=== PATIENT | male | born 1955 | race Caucasian/White ===

== ENCOUNTER 2024-10-15 17:00 | Inpatient (IN) | payer MEDICARE, SELFPAY ==
[2024-10-15] VITALS (13 sets, daily range): BP systolic 127–179; BP diastolic 77–100; PULSE 58–67; RESP 10–20; TEMP 36.4–36.9; O2SAT 96–100; BMI 30.2
--- NOTE | 2024-10-15 17:01 | ECG_ITS ---
Test Date: 2024-10-15 17:05:21 Measurements Intervals [place] Rate: 62 P: 25 MD: 193 QRS: -64 QRSD: 118 T: 93 QT: 421 QTc: 430 Interpretive Statements SINUS RHYTHM LEFT ANTERIOR FASCICULAR BLOCK INFERIOR ST ELEVATION MYOCARDIAL INJURY- ACUTE RECIPROCAL ST DEPRESSION IN HIGH LATERAL LEADS ABNORMAL ECG No previous ECG available for comparison Electronically Signed On 10-15-2024 19:29:48 CDT by Usman Gomez D.O.
--- NOTE | 2024-10-15 17:13 | PC.NURSE ---
1713 stemi o/h [address] Fletcher talked to Dr Wheeler 1715 [facility] Notified ETA 25min
--- NOTE | 2024-10-15 17:18 | ED.GENADULT ---
HPI - General Adult General Chief complaint: Chest Pain Stated complaint: chest pain Time Seen by Provider: 10/15/24 17:14 History of Present Illness HPI narrative: This is a 69-year-old male presenting ED with chief complaint of chest pain. Patient says at 2:30 p.m. this afternoon he developed a heaviness in the center of his chest that radiated to both arms. It was associated with a feeling of warmth. He denies any history of hypertension diabetes or tobacco use but has not seen a doctor in many years. Patient is still currently having chest pain. No recent illness, fevers shortness of breath productive cough or abdominal pain. No weakness to any extremity. Related Data Allergies Allergy/AdvReac Type Severity Reaction Status Date / Time No Known Allergies Allergy Unverified 02/24/14 15:20 Exam Narrative: APPEARANCE: No apparent distress. Head: atraumatic. EYES: EOMI, NOSE: Atraumatic NECK: Trachea midline RESPIRATORY: No increased rate of breathing CTAB CARDIOVASCULAR: RRR, + 2 pulses in extremities ABDOMINAL: Non-distended, soft nontender MUSCULOSKELETAl: No obvious deformities NEURO: Alert. Moving 4/4 extremities SKIN:: Warm, dry. Normal color PSYCHIATRIC: Normal affect Course Vital Signs Vital signs: Vital Signs Temperature 97.6 F 10/15/24 17:10 Pulse Rate 60 10/15/24 17:10 Respiratory Rate 16 10/15/24 17:10 Blood Pressure 159/86 H 10/15/24 17:10 Pulse Oximetry 96 10/15/24 17:10 Oxygen Delivery Room Air 10/15/24 17:10 Temperature 97.6 F 10/15/24 17:10 Pulse Rate 60 10/15/24 17:10 Respiratory Rate 16 10/15/24 17:10 Blood Pressure 159/86 H 10/15/24 17:10 Pulse Oximetry 96 10/15/24 17:10 Oxygen Delivery Room Air 10/15/24 17:10 Medical Decision Making [facility] Narrative Medical decision making narrative: -Course: This is a 69-year-old male presenting to the ED with cardiac chest pain. EKG shows and LVH pattern and possible ST elevations in 3 [address]F [address] clear [address] depressions in V2. Interventional Cardiology was contacted and STEMI was activated. Patient going to the operations label clerk. Patient given aspirin and heparin bolus. Vital Signs Vital Signs: Vital Signs Temperature 97.6 F 10/15/24 17:10 Pulse Rate 60 10/15/24 17:10 Respiratory Rate 16 10/15/24 17:10 Blood Pressure 159/86 H 10/15/24 17:10 Pulse Oximetry 96 10/15/24 17:10 Oxygen Delivery Room Air 10/15/24 17:10 Temperature 97.6 F 10/15/24 17:10 Pulse Rate 60 10/15/24 17:10 Respiratory Rate 16 10/15/24 17:10 Blood Pressure 159/86 H 10/15/24 17:10 Pulse Oximetry 96 10/15/24 17:10 Oxygen Delivery Room Air 10/15/24 17:10 Discharge Plan Discharge Patient Language: Slovak
[2024-10-15] MEDS: ASPIRIN 81 MG CHEWABLE TABLET 324 MG PO (17:27)
[2024-10-15 17:29] LABS: Hematocrit 46.7 % (42.0-52.0); Hemoglobin 15.8 g/dL (14.0-18.0); Immature Granulocyte Percent A 0.2 % (0-0.5); Immature Platelet Fraction Pct 2.7 % (0.9-11.2); Lymphocytes Absolute Auto 0.97 K/mm3 (0.9-3.2); Mean Corpuscular HGB Conc 33.8 g/dl (32-36); Mean Corpuscular Hemoglobin 33.1 pg (26-34); Mean Corpuscular Volume 97.9 fl (80-100); Nucleated Red Blood Cells Absolute Auto 0.000 K/mm3 (0.0-0.012); Nucleated Red Blood Cells Perc 0.0 % (0.0-0.2); Platelet Count Result 235 k/mm3 (150-375); Red Blood Count 4.77 M/mm3 (4.6-6.20); White Blood Count 10.4 K/mm3 (4.5-10.0)
[2024-10-15 17:44] LABS: Alanine Aminotransferase 33 U/L (6-50); Albumin Level 4.7 g/dL (3.5-5.1); Alkaline Phosphatase 128 U/L (38-126); Anion Gap 11 mmol/L (4-12); Aspartate Amino Transferase 38 U/L (17-59); Bilirubin,Total 0.7 mg/dL (0.2-1.3); Blood Urea Nitrogen 15 mg/dL (9-20); Calcium 8.9 mg/dL (8.4-10.2); Carbon Dioxide 22 mmol/L (22-30); Chloride 104 mmol/L (98-107); Estimated CRCL calculation 71 ml/min; Estimated Glomerular Filt Rate > 60; Glucose 111 mg/dL (65-110); Lipase 80 U/L (23-300); Potassium 3.9 mmol/L (3.4-5.0); Sodium 137 mmol/L (137-145); Total Protein 8.4 g/dL (6.3-8.2)
[2024-10-15 17:48] LABS: INR 0.9; Prothrombin Time 12.4 Seconds (11.1-14.7)
[2024-10-15 17:49] LABS: Partial Thromboplastin Time 25.2 Seconds (22.3-36.8)
[2024-10-15 17:51] LABS: Troponin I 0.017 ng/mL (0.000-0.034)
[2024-10-15 19:00] LABS: MRSA (PCR) NOT DETECTED (NOT DETECTE)
--- NOTE | 2024-10-15 19:02 | P.SEDATION_ITS ---
Moderate Sedation Note-Pt Data Patient Data Diagnosis: Inferior STEMI Present Complaint: Chest pain Procedure to be performed/Plan: Coronary angiogram possible stent Allergies Allergy/AdvReac Type Severity Reaction Status Date / Time No Known Allergies Allergy Unverified 02/24/14 15:20 Sedation/Anesthesia: No previous sedation/anesthesia problems (including family history). Mod Sed Physical Exam Physical Exam Pre Procedural Exam: Normal: Appearance, Eyes, Ears, Nose, Neck, Throat, Airway, Lungs, Heart Size, Heart Rate, Heart Rhythm, Neuro Exam, Abdomen, Liver, Kidneys, Spleen, Breasts, Genitalia, Extremities and Skin Hours since solid foods: 8 Hours since liquid intake: 8 Mallampati Classification: class 1 Internal Medicine - PN: Obj Da Vital Signs Vital Signs: Vital Signs - 24 hr 10/15/24 17:10 10/15/24 17:16 10/15/24 17:34 Temperature 36.4 C 36.6 C 36.8 C Pulse Rate 60 67 62 Respiratory Rate 16 18 16 Blood Pressure 159/86 H 175/100 H 174/84 H Pulse Oximetry 96 98 96 Oxygen Delivery Room Air Room Air 10/15/24 17:52 Temperature Pulse Rate 66 Respiratory Rate 20 Blood Pressure 174/84 H Pulse Oximetry 100 Oxygen Delivery Labs 10/15/24 17:20 10/15/24 17:20 Labs: Laboratory Results - last 24 hr 10/15/24 10/15/24 17:20 17:42 WBC 10.4 H RBC 4.77 Hgb 15.8 Hct 46.7 MCV 97.9 MCH 33.1 MCHC 33.8 RDW 12.3 Plt Count 235 MPV 9.7 Immature Gran % (Auto) 0.2 Neut % (Auto) 83.6 H Lymph % (Auto) 9.4 L [place] % (Auto) 5.6 Eos % (Auto) 0.9 Baso % (Auto) 0.3 Lymph # (Auto) 0.97 [place] # (Auto) 0.6 Eos # (Auto) 0.1 Baso # (Auto) 0.0 Abs Immat Gran (auto) 0.02 Absolute Neuts (auto) 8.7 H Absolute Nucleated RBC 0.000 Nucleated RBC % 0.0 % Immature Plt Fraction 2.7 PT 12.4 INR 0.9 APTT 25.2 Sodium 137 Potassium 3.9 Chloride 104 Carbon Dioxide 22 Anion Gap 11 BUN 15 Creatinine 0.79 Estim Creat Clear Calc 71 Estimated GFR > 60 Glucose 111 H Calcium 8.9 Total Bilirubin 0.7 AST 38 ALT 33 Alkaline Phosphatase 128 H Troponin I 0.017 Total Protein 8.4 H Albumin 4.7 Lipase 80 Nasal MRSA (PCR) Not detected ASA Classification/Sedation ASA Classification/Sedation ASA Class: I Emergent: No Risks: Risks, benefits and alternatives explained and patient/family accepted plan for sedation. Patient re-evaluated immediately prior to sedation.
--- NOTE | 2024-10-15 19:02 | WPDHPUPDATE1 ---
History and Physical Update Update Date/Time: 10/15/24 19:02 History and Physical has been reviewed, including an updated exam of the patient. There are NO changes in the patient's condition. Risks, benefits, and alternatives have been discussed and questions answered. Patient agrees to proceed with procedure.
--- NOTE | 2024-10-15 19:03 | P.PCNCC_ITS ---
Cardiac Cath Procedure Note Date of procedure:: 10/15/24 Performing physician:: Rehana Wheeler MD Date of service October 15, 2024 Indication:: Inferior STEMI Brief clinical history:: This 69-year-old patient with no significant past history and who has not seen any doctor for the last 40 years and who drinks 6 pack beer and lives by himself and has a strong family history of CAD with 2 brothers had stents presents to the hospital with chest pain that started around 2:30 p.m.. It is intermittent and central in location. It started to become severe and decided to come to the ER. EKG showed inferior ST elevations with reciprocal ST changes. Also ST elevation in lead V3. He was given aspirin and 4000 heparin emergency room. Procedure Procedure performed:: 1-Moderate sedation that started at 6:04 p.m. and ended at 6:55 p.m. total duration 51 minutes using 2mg of Versed and mcg fentanyl. The registered nurse was deya haynes. 2-Selective left and right coronary angiogram. 3-Left heart catheterization with measurement of LVEDP and measurement of gradient across aortic valve. 4-intravascular ultrasound of the RCA. -5-deployment with drug-eluting stent orsiro 3 x 26 covering proximal and mid RCA. The proximal portion stent was expanded with noncompliant balloon using 3.5 mm balloon. 6-Right common femoral arterial angiogram. 7-Deployment of 6 [place] Angio-Seal. Sedation/Medication given:: Moderate sedation. Access site:: Right common femoral artery. Estimated blood loss:: 10cc Procedure note:: After informed consent patient was brought in to crown and bridge dental lab technician with the was draped and prepped in usual manner. Moderate sedation was given and the right groin was infiltrated using 1% lidocaine. six [place] sheath was obtained using micropuncture needle and the modified Seldinger technique. Selective left coronary angiogram was done using JL4 catheter with the tip of the catheter placed in the left main coronary artery. Selective right coronary angiogram was done using JR4 catheter with the tip of the catheter placed to the right coronary artery. After that 6 [place] guide catheter the JR4 was engaged in RCA then we attempted to wire RCA using luge without success and then we used Business Manager 150 wire. Then balloon angioplasty was done using 2.5 x 15 with inflation done corresponding to size 2.75. Subsequently intravascular ultrasound was done. Then deployed drug- eluting stent orsiro 3 x 26 covering proximal and midportion of RCA and a nominal pressure. Post dilated the proximal portion of the stent using 3.5 mm balloon under normal pressure for 20 seconds. After that 5 [place] pigtail catheter was advanced across the aortic valve into the left ventricle with measurement of LVEDP and measurement of gradient across aortic valve. LV angiogram was done. Right common femoral arterial angiogram was done. Findings:: 1- left coronary artery is a large artery that divides into large LAD, large circumflex artery. Left main is free of disease 2- left anterior descending artery is a large artery that runs and wraps around the apex. In the proximal portion there is a high-grade stenosis 90%. Prior to the lesion there is a medium-size diagonal branch looks unremarkable. 3- leftcircumflex artery is a large artery and has minimal irregularities. 4- right coronary artery is totally occluded proximally. With RITESH flow 0 before intervention and 3 after intervention. 5-intravascular ultrasound of the RCA shows that the RCA distal to the lesion measures 3 mm in the proximal portion of the RCA measures about 3.7-4 mm. 5- LVEDP was 12 mm Hg and no gradient across aortic valve. 6- opening arterial pressure was 149/86 and closing pressure was 110/74 7- right femoral artery angiogram shows no significant disease in the right common femoral artery. Assessment and Plan Assessment and plan (1) STEMI (ST elevation myocardial infarction): Code(s): I21.3 - ST elevation (STEMI) myocardial infarction of unspecified site Status: Acute Plan -continue aspirin and Brilinta -staged intervention to the LAD within 1-2 weeks. -high-intensity statin. -echo. -alcohol withdrawal precautions.
--- NOTE | 2024-10-15 19:10 | PM.IMHP ---
H&P: HPI History of Present Illness Date/Time: Date of service 10/15/24 19:10 Chief Complaint: Chest pain Narrative: This 69-year-old patient with no significant past history and who has not seen any doctor for the last 40 years and who drinks 6 pack beer and lives by himself and has a strong family history of CAD with 2 brothers had stents presents to the hospital with chest pain that started around 2:30 p.m.. It is intermittent and central in location. It started to become severe and decided to come to the ER. EKG showed inferior ST elevations with reciprocal ST changes. Also ST elevation in lead V3. He was given aspirin and 4000 heparin emergency room. Review of Systems Review of Systems: All systems reviewed & are unremarkable except as noted in HPI and below Constitutional: Constitutional: Denies chills, Denies fatigue, Denies fever(s), Denies headache(s) and Denies snoring Eyes: Eyes: Denies eye discharge and Denies loss of vision ENT: Denies dizziness, Denies headache(s), Denies nasal discharge and Denies sore throat Cardiovascular: Cardiovascular: Reports as per HPI, Reports chest pain, Denies syncope, Denies rapid heart rate, Denies leg edema, Reports dyspnea, Reports dyspnea on exertion, Denies orthopnea and Denies paroxysmal nocturnal dyspnea Respiratory: Respiratory: Denies chest congestion, Denies cough, Reports dyspnea, Reports dyspnea on exertion, Denies snoring and Denies wheezing Gastrointestinal: Gastrointestinal: Denies abdominal pain, Denies diarrhea, Denies nausea and Denies vomiting Genitourinary: Genitourinary: Denies hematuria, Denies dysuria, Denies flank pain and Denies urinary frequency Musculoskeletal: Musculoskeletal: Denies myalgias, Denies arthralgias and Denies joint swelling Neurologic: Denies Abnormal speech present, Denies dizziness, Denies syncope, Denies headache(s), Denies focal weakness and Denies loss of vision Psychiatric: Psychiatric: Denies anxiety and Denies depression Endocrine: Endocrine: Denies cold intolerance, Denies fatigue and Denies heat intolerance Hematologic/Lymphatic: Hematologic/Lymphatic: Denies easy bleeding and Denies easy bruising Allergic/Immunologic: Allergic/Immunologic: Denies urticaria and Denies wheezing Meds Home Medications and Allergies Allergies Allergy/AdvReac Type Severity Reaction Status Date / Time No Known Allergies Allergy Unverified 02/24/14 15:20 Vital Signs Vital Signs - 24 hr 10/15/24 17:10 10/15/24 17:16 10/15/24 17:34 Temperature 36.4 C 36.6 C 36.8 C Pulse Rate 60 67 62 Respiratory Rate 16 18 16 Blood Pressure 159/86 H 175/100 H 174/84 H Pulse Oximetry 96 98 96 Oxygen Delivery Room Air Room Air 10/15/24 17:52 Temperature Pulse Rate 66 Respiratory Rate 20 Blood Pressure 174/84 H Pulse Oximetry 100 Oxygen Delivery Exam Const: General: cooperative, healthy appearing, comfortable, no acute distress, well developed and well nourished Nutritional Appearance: well nourished Orientation/consciousness: patient oriented x3 HENMT: Head: normal to inspection, normocephalic and atraumatic Ears: hearing grossly normal bilaterally and external ears normal Face/Nose/Sinus: Normal external nose present, Normal nares present, normal facial exam and No erythema Face and sinus: normal facial exam and no erythema Mouth: Yes moist mucous membranes and No lip abnormal Throat: uvula midline Eyes: General: appearance normal, both eyes and all related structures Eyelids: eyelids normal Sclera: sclerae normal Neck: Neck: normal visual inspection and full ROM Thyroid: thyroid normal Carotids: no bruits Lymphatic: lymphedema not noted Chest: Chest palpation & inspection: normal inspection of the chest and normal palpation of entire chest wall Resp: Effort & Inspection: normal respiratory effort and not labored Auscultation: clear to auscultation bilaterally, no crackles, no rales and no wheezes Cardio: Jugular venous distension: no JVD Rate: regular rate Rhythm: regular rhythm Heart sounds: S1 normal heart sound present, S2 normal heart sound present, no click, no gallops, no murmurs and no rubs Bruits: no carotid bruits GI: Inspection: normal to inspection and non-distended GI Palp: No abdominal tenderness Auscultation: normal bowel sounds Rectal Exam: deferred : General: No CVA tenderness and Yes no CVA tenderness Back/Spine/Pelvis: Back: no CVA tenderness, No CVA tenderness and No erythema Cervical Spine: cervical ROM normal Skin: General skin exam: normal color, no erythema and no pallor Lesions: no lesions Rashes: no rashes Neuro: General: patient oriented x3 and moves all extremities Cranial nerves: Yes facial symmetry Speech: normal speech Motor exam (neuro): 5/5 motor strength present throughout Extrem: General: normal to inspection and full ROM Psych: Appearance: grossly normal, well kempt and disheveled Affect: normal affect H&P: Results Labs Labs: Short CBC 10/15/24 Range/Units 17:20 WBC 10.4 H (4.5-10.0) K/mm3 Hgb 15.8 (14.0-18.0) g/dL Hct 46.7 (42.0-52.0) % Plt Count 235 (150-375) k/mm3 BMP 10/15/24 17:20 Sodium 137 Potassium 3.9 Chloride 104 Carbon Dioxide 22 BUN 15 Creatinine 0.79 Glucose 111 H Calcium 8.9 Cardiac Enzymes 10/15/24 Range/Units 17:20 Troponin I 0.017 (0.000-0.034) ng/mL Liver Function 10/15/24 Range/Units 17:20 Total Bilirubin 0.7 (0.2-1.3) mg/dL AST 38 (17-59) U/L ALT 33 (6-50) U/L Alkaline Phosphatase 128 H (38-126) U/L Albumin 4.7 (3.5-5.1) g/dL Assessment and Plan Assessment and plan (1) STEMI (ST elevation myocardial infarction): Code(s): I21.3 - ST elevation (STEMI) myocardial infarction of unspecified site Status: Acute Assessment and Plan: Inferior STEMI Plan Risks And benefits of cardiac catheterization discussed with the patient agrees to proceed. We will proceed in an emergency fashion
--- NOTE | 2024-10-15 19:30 | ECG_ITS ---
Test Date: 2024-10-15 20:21:46 Measurements Intervals [place] Rate: 60 P: 50 NC: 198 QRS: -65 QRSD: 118 T: -9 QT: 441 QTc: 441 Interpretive Statements SINUS RHYTHM LEFT ANTERIOR FASCICULAR BLOCK VOLTAGE CRITERIA FOR LVH SEPTAL ST ELEVATION- CONSIDER ACUTE INJURY BASELINE ARTIFACT- I, II, III, AVR, AVL, AVF, V1-V6 ABNORMAL ECG Compared to ECG 10/15/2024 17:05:[address] ELEVATION NOW PRESENT INFERIOR STEMI NO LONGER PRESENT Electronically Signed On 10-16-2024 06:31:34 CDT by Usman Gomez D.O.
[2024-10-15] MEDS: SODIUM CHLORIDE 0.9% IV 1,000 ML 100 ML IV CONT (19:46)
[2024-10-15 20:46] LABS: Cholesterol 208 mg/dL (0-200); HDL Direct 63 mg/dL; Triglycerides 77 mg/dL (<150)
[2024-10-15 21:26] LABS: Troponin I 6.210 ng/mL (0.000-0.034)
[2024-10-15 21:33] LABS: Magnesium 2.1 mg/dL (1.6-2.3)
[2024-10-16] VITALS (18 sets, daily range): BP systolic 120–170; BP diastolic 61–94; PULSE 55–137; RESP 13–20; TEMP 36.6–37.1; O2SAT 96–100
[2024-10-16 00:18] LABS: Troponin I 23.900 ng/mL (0.000-0.034)
[2024-10-16 04:49] LABS: Hematocrit 42.4 % (42.0-52.0); Hemoglobin 14.6 g/dL (14.0-18.0); Immature Granulocyte Percent A 0.3 % (0-0.5); Lymphocytes Absolute Auto 1.20 K/mm3 (0.9-3.2); Mean Corpuscular HGB Conc 34.4 g/dl (32-36); Mean Corpuscular Hemoglobin 33.9 pg (26-34); Mean Corpuscular Volume 98.4 fl (80-100); Nucleated Red Blood Cells Absolute Auto 0.000 K/mm3 (0.0-0.012); Nucleated Red Blood Cells Perc 0.0 % (0.0-0.2); Platelet Count Result 215 k/mm3 (150-375); Red Blood Count 4.31 M/mm3 (4.6-6.20); White Blood Count 9.1 K/mm3 (4.5-10.0)
[2024-10-16 04:53] LABS: Hemoglobin A1C 5.4 % (<5.7)
[2024-10-16 05:18] LABS: Anion Gap 6 mmol/L (4-12); Blood Urea Nitrogen 11 mg/dL (9-20); Calcium 8.0 mg/dL (8.4-10.2); Carbon Dioxide 22 mmol/L (22-30); Chloride 106 mmol/L (98-107); Estimated CRCL calculation 89 ml/min; Estimated Glomerular Filt Rate > 60; Glucose 102 mg/dL (65-110); Potassium 3.6 mmol/L (3.4-5.0); Sodium 134 mmol/L (137-145)
[2024-10-16 05:41] LABS: Thyroid Stimulating Hormone Reflex 1.940 uIU/mL (0.465-4.68)
[2024-10-16] MEDS: TICAGRELOR 90 MG TABLET PO ×2 (06:08→20:29)
[2024-10-16] MEDS: ASPIRIN 81 MG ENTERIC TABLET PO (08:05)
[2024-10-16] MEDS: ATORVASTATIN 40 MG TABLET PO (08:05)
[2024-10-16] MEDS: POTASSIUM CHLORIDE 20 MEQ ER TABLET 40 MEQ PO (08:05)
--- NOTE | 2024-10-16 08:41 | WPDCNINT ---
Assessment and Plan Assessment and plan (1) Chest pain: Code(s): R07.9 - Chest pain, unspecified Status: Acute Assessment and Plan: Patient presented with chest pain, substernal, radiated to both arms, complain of nausea but no vomiting, denies any diaphoresis or shortness of breath -EKG showed ST elevation in the inferior leads (2) STEMI (ST elevation myocardial infarction): Code(s): I21.3 - ST elevation (STEMI) myocardial infarction of unspecified site Status: Acute Assessment and Plan: Status post PTCA/PCI with BARBARA x1 to 100% occluded proximal RCA, LVEDP was 12 mmHg. Patient also has a 90% high-grade stenosis in the proximal portion of the LAD which will require staged PCI with Cardiology -echocardiogram has been ordered -continue aspirin, atorvastatin, ticagrelor -a neurology following the patient (3) Hyperlipidemia: Code(s): E78.5 - Hyperlipidemia, unspecified Status: Acute Assessment and Plan: Continue statin (4) Alcohol use: Code(s): F10.90 - Alcohol use, unspecified, uncomplicated Status: Acute Assessment and Plan: Patient drinks 6 packs beer every day -denies any alcohol withdrawal issues -will start CIWA protocol along with chlordiazepoxide Plan DVT prophylaxis: Status post PTCA/PCI Stress ulcer prophylaxis: Not indicated Nutrition: Heart healthy diet Code Status: Full code Critical Care Time Spent: 44 minute Due to a high probability of clinically significant, life threatening deterioration, the patient required my highest level of preparedness to intervene emergently and I personally spent this critical care time directly and personally managing the patient. This critical care time included obtaining a history; examining the patient; pulse oximetry; ordering and review of studies; arranging urgent treatment with development of a management plan; evaluation of patient's response to treatment; frequent reassessment; and discussions with other providers. It was exclusive of separately billable procedures and treating other patients and teaching time. Please see Assessment and Plan section and the rest of the note for further information on patient assessment and treatment This dictation may have been done utilizing a voice recognition system. Attempts have been made to correct errors. However, there may be uncorrected grammatical, spelling, and recognitions errors present. Business Development Consultant Consult Note Consult date: 10/16/24 Reason for consult: Chest pain, STEMI status post PTCA/PCI with BARBARA x1 to 100% occluded proximal RCA, LVEDP was 12 mmHg. Patient also has a 90% high-grade stenosis in the proximal portion of the LAD HPI: Thiago Florez is a 69 year old male with no significant past medical history of not seen a doctor for the last 40 years, denies any side tobacco or illicit drug use, drinks 6 pack beer at night daily, lives by himself. Has a strong family history of coronary artery disease with 2 brothers having stents placed. Patient presented with chest pain, intermittent, substernal. Radiate to both arms, it was associated with nausea but no vomiting. 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 Patient also has a 90% high-grade stenosis in the proximal portion of the LAD which will require staged PCI. Patient was transferred to the ICU for further manage Patient seen and examined this morning in the ICU, states he feels much better, denies any chest pain, shortness with abdominal pain, nausea, vomiting. Hemodynamically stable, adequate urine output and afebrile. Review of Systems Review of Systems: All systems reviewed & are unremarkable except as noted in HPI and below PMFSH Family History Family History (Updated 10/15/24 @ 19:40 by Chiara Sierra RN) Father Blood disease Sibling Coronary artery disease Sibling Coronary artery disease Sibling Coronary artery disease Social History Social History Smoking status: Never smoker Alcohol intake: current Drinks per week: 42 Substance use: never Lack of Transportation: No Lack of Food: Never True Current Housing: I Have Housing Concerned About Future Housing: No Difficulty Paying Gas/Electric Bills: No Difficulty Paying for Meds: No Currently Unemployed: No Education: High School Diploma/GED Difficulty w/ Childcare or Family Care: No Spiritual care concerns: No Meds Home Medications and Allergies Home Medications ?Medication ?Instructions ?Recorded ?Confirmed ?Type No Home Medications 10/15/24 10/15/24 History Allergies Allergy/AdvReac Type Severity Reaction Status Date / Time No Known Allergies Allergy Verified 10/15/24 19:35 Vital Signs Vital Signs - 24 hr 10/15/24 17:10 10/15/24 17:16 10/15/24 17:34 Temperature 97.6 F 97.9 F 98.2 F Pulse Rate 60 67 62 Pulse Rate [Palpation] Respiratory Rate 16 18 16 Blood Pressure 159/86 H 175/100 H 174/84 H Pulse Oximetry 96 98 96 Oxygen Delivery Room Air Room Air 10/15/24 17:52 10/15/24 19:30 10/15/24 19:30 Temperature Pulse Rate 66 63 Pulse Rate [Palpation] 63 Respiratory Rate 20 12 Blood Pressure 174/84 H 163/89 H Pulse Oximetry 100 99 Oxygen Delivery 10/15/24 19:45 10/15/24 20:00 10/15/24 20:00 Temperature Pulse Rate 64 62 Pulse Rate [Palpation] 64 Respiratory Rate 12 10 L Blood Pressure 179/84 H 159/83 H Pulse Oximetry 100 99 Oxygen Delivery 10/15/24 20:00 10/15/24 20:00 10/15/24 20:00 Temperature 97.8 F Pulse Rate 61 61 Pulse Rate [Palpation] Respiratory Rate 12 Blood Pressure 159/83 H Pulse Oximetry 99 Oxygen Delivery Room Air 10/15/24 20:15 10/15/24 20:45 10/15/24 21:15 Temperature 98.0 F 97.7 F 98.1 F Pulse Rate 61 64 60 Pulse Rate [Palpation] Respiratory Rate 12 12 14 Blood Pressure 153/81 H 150/81 H 145/80 H Pulse Oximetry 100 99 98 Oxygen Delivery 10/15/24 22:00 10/15/24 22:00 10/15/24 22:15 Temperature 98.0 F 97.8 F Pulse Rate 62 62 58 L Pulse Rate [Palpation] Respiratory Rate 13 13 Blood Pressure 144/77 H 127/84 Pulse Oximetry 99 98 Oxygen Delivery 10/15/24 23:15 10/16/24 00:00 10/16/24 00:00 Temperature 98.4 F Pulse Rate 60 Pulse Rate [Palpation] 60 Respiratory Rate 20 Blood Pressure 139/80 Pulse Oximetry 96 Oxygen Delivery Room Air 10/16/24 00:00 10/16/24 00:00 10/16/24 00:15 Temperature 98.7 F 98.5 F Pulse Rate 58 L 60 58 L Pulse Rate [Palpation] Respiratory Rate 20 16 Blood Pressure 122/66 120/61 Pulse Oximetry 97 96 Oxygen Delivery 10/16/24 01:15 10/16/24 02:00 10/16/24 02:00 Temperature 98.1 F 98.1 F Pulse Rate 62 62 62 Pulse Rate [Palpation] Respiratory Rate 16 16 Blood Pressure 136/79 136/79 Pulse Oximetry 96 96 Oxygen Delivery 10/16/24 04:00 10/16/24 04:00 10/16/24 04:00 Temperature 97.9 F Pulse Rate 60 Pulse Rate [Palpation] 58 L Respiratory Rate 17 Blood Pressure 133/69 Pulse Oximetry 96 Oxygen Delivery Room Air 10/16/24 04:00 10/16/24 06:00 10/16/24 06:00 Temperature 98.1 F Pulse Rate 60 56 L 56 L Pulse Rate [Palpation] Respiratory Rate 18 Blood Pressure 130/72 Pulse Oximetry 97 Oxygen Delivery 10/16/24 08:00 Temperature 98.2 F Pulse Rate 63 Pulse Rate [Palpation] Respiratory Rate 16 Blood Pressure 122/81 Pulse Oximetry 97 Oxygen Delivery Exam Narrative: General: Pleasant gentleman in no acute distress HEENT:? Pupils equal and reactive, sclerae is clear Neck:? Supple Respiratory:? Clear to auscultation bilaterally, no wheezes, adequate air Cardiac:? S1-S2 normal, regular rate and rhythm Abdomen:? Soft, nontender, nondistended, normoactive bowel sounds Extremities:? Right growing site without any evidence of ecchymosis or hematoma Neuro:? Patient is awake, alert, oriented x3, nonfocal Skin:? More skin lesions noted Psych:? Normal mentation and affect Results Labs 10/16/24 04:40 10/16/24 04:40 Labs: Short CBC 10/15/24 10/16/24 Range/Units 17:20 04:40 WBC 10.4 H 9.1 (4.5-10.0) K/mm3 Hgb 15.8 14.6 (14.0-18.0) g/dL Hct 46.7 42.4 (42.0-52.0) % Plt Count 235 215 (150-375) k/mm3 BMP 10/15/24 10/16/24 17:20 04:40 Sodium 137 134 L Potassium 3.9 3.6 Chloride 104 106 Carbon Dioxide 22 22 BUN 15 11 Creatinine 0.79 0.70 Glucose 111 H 102 Calcium 8.9 8.0 L Cardiac Enzymes 10/15/24 10/15/24 10/15/24 Range/Units 17:20 20:48 23:43 Troponin I 0.017 6.210 H* D 23.900 H* D (0.000-0.034) ng/mL Liver Function 10/15/24 Range/Units 17:20 Total Bilirubin 0.7 (0.2-1.3) mg/dL AST 38 (17-59) U/L ALT 33 (6-50) U/L Alkaline Phosphatase 128 H (38-126) U/L Albumin 4.7 (3.5-5.1) g/dL Quality VTE Prophylaxis VTE prophylaxis: mechanical ordered Hospitalist MIPS Advance Care Plan I have confirmed that the patient's Advanced Care Plan is present, code status is documented, or surrogate decision maker is listed in patient medical record.: Yes Medication Reconciliation I have utilized all available resources to obtain, update and review the patients current medications (includes all prescriptions, OTC, herbals, cannabis, and nutritional supplements).: Yes
[2024-10-16] MEDS: PERFLUTREN LIPID MICROSPHERES 1.5 ML VIAL DILUTED TO 10 ML TOTAL VOLUME IV PUSH (09:37)
--- NOTE | 2024-10-16 09:37 | IVDEFINITY ---
Prior to administration of IV Definity the patient was educated on the risks and benefits of the imaging enhancing agent including potential adverse side effects. The patient verbalized understanding. Allergies were verified. No exclusion criteria were identified and at least one of the following inclusion criteria were met: 1) physician request, 2) patient technically difficult to image (per the [place] [employer] Echocardi[employer] guidelines of two or more segments not discernable within the apical view), or 3) questionable left ventricular function. ?
--- NOTE | 2024-10-16 10:50 | P.PNCA_ITS ---
Progress Note: A&P Assessment and Plan (1) STEMI (ST elevation myocardial infarction): Code(s): I21.3 - ST elevation (STEMI) myocardial infarction of unspecified site Status: Acute Assessment and Plan: Presented with chest pain and was found to have inferior STEMI. * s/p PCI/BARBARA x 1 to the RCA (3 x 26mm Osiro stent) * DAPT with ASA indefinitely, Brilinta for 1 year * High intensity statin * Cardiac rehab referral * Can be downgraded to IMU status * Likely discharge tomorrow (2) Coronary artery disease: Code(s): I25.10 - Atherosclerotic heart disease of [place] coronary artery without angina pectoris Status: Acute Assessment and Plan: CAD presenting with inferior STEMI. As above. (3) Hyperlipidemia: Code(s): E78.5 - Hyperlipidemia, unspecified Status: Acute Assessment and Plan: High intensity statin (4) Alcohol use: Code(s): F10.90 - Alcohol use, unspecified, uncomplicated Status: Acute Assessment and Plan: On withdrawal precautions Subjective Date/time seen: 10/16/24 10:50 Interval history: Cardiology follow up visit Date of service 10/16/2024: He feels well this morning and does not have any complaints. He denies any chest pain, palpitations, shortness of breath. He does not have any pain at the arterial insertion site. Review of Systems Review of Systems: All systems reviewed & are unremarkable except as noted in HPI and below Constitutional: Constitutional: Denies chills, Denies fatigue, Denies fever(s), Denies headache(s) and Denies snoring Eyes: Eyes: Denies eye discharge and Denies loss of vision ENT: Denies dizziness, Denies headache(s), Denies nasal discharge and Denies sore throat Cardiovascular: Cardiovascular: Reports as per HPI, Reports chest pain, Denies syncope, Denies rapid heart rate, Denies leg edema, Reports dyspnea, Reports dyspnea on exertion, Denies orthopnea and Denies paroxysmal nocturnal dyspnea Respiratory: Respiratory: Denies chest congestion, Denies cough, Reports dyspnea, Reports dyspnea on exertion, Denies snoring and Denies wheezing Gastrointestinal: Gastrointestinal: Denies abdominal pain, Denies diarrhea, Denies nausea and Denies vomiting Genitourinary: Genitourinary: Denies hematuria, Denies dysuria, Denies flank pain and Denies urinary frequency Musculoskeletal: Musculoskeletal: Denies myalgias, Denies arthralgias and Denies joint swelling Neurologic: Denies Abnormal speech present, Denies dizziness, Denies syncope, Denies headache(s), Denies focal weakness and Denies loss of vision Psychiatric: Psychiatric: Denies anxiety and Denies depression Endocrine: Endocrine: Denies cold intolerance, Denies fatigue and Denies heat intolerance Hematologic/Lymphatic: Hematologic/Lymphatic: Denies easy bleeding and Denies easy bruising Allergic/Immunologic: Allergic/Immunologic: Denies urticaria and Denies wheezing Exam Const: General: cooperative, healthy appearing, comfortable, no acute distress, well developed and well nourished Nutritional Appearance: well nourished Orientation/consciousness: patient oriented x3 HENMT: Head: normal to inspection, normocephalic and atraumatic Ears: hea ring grossly normal bilaterally and external ears normal Face/Nose/Sinus: Normal external nose present, Normal nares present, normal facial exam and No erythema Face and sinus: normal facial exam and no erythema Mouth: Yes moist mucous membranes and No lip abnormal Throat: uvula midline Eyes: General: appearance normal, both eyes and all related structures Eyelids: eyelids normal Sclera: sclerae normal Neck: Neck: normal visual inspection and full ROM Thyroid: thyroid normal Carotids: no bruits Lymphatic: lymphedema not noted Chest: Chest palpation & inspection: normal inspection of the chest and normal palpation of entire chest wall Resp: Effort & Inspection: normal respiratory effort and not labored Auscultation: clear to auscultation bilaterally, no crackles, no rales and no wheezes Cardio: Jugular venous distension: no JVD Rate: regular rate Rhythm: regular rhythm Heart sounds: S1 normal heart sound present, S2 normal heart sound present, no click, no gallops, no murmurs and no rubs Bruits: no carotid bruits GI: Inspection: normal to inspection and non-distended Auscultation: normal bowel sounds Rectal Exam: deferred : General: No CVA tenderness and Yes no CVA tenderness Back/Spine/Pelvis: Back: no CVA tenderness, No CVA tenderness and No erythema Cervical Spine: cervical ROM normal Skin: General skin exam: normal color, no erythema and no pallor Lesions: no lesions Rashes: no rashes Neuro: General: patient oriented x3 and moves all extremities Cranial nerves: Yes facial symmetry Speech: normal speech and No Abnormal speech present Motor exam (neuro): 5/5 motor strength present throughout Extrem: General: normal to inspection and full ROM Psych: Appearance: grossly normal, well kempt and disheveled Affect: normal affect Objective Data Vital Signs Vital Signs: Vital Signs - 24 hr 10/15/24 17:10 10/15/24 17:16 10/15/24 17:34 Temperature 36.4 C 36.6 C 36.8 C Pulse Rate 60 67 62 Pulse Rate [Palpation] Respiratory Rate 16 18 16 Blood Pressure 159/86 H 175/100 H 174/84 H Pulse Oximetry 96 98 96 Oxygen Delivery Room Air Room Air 10/15/24 17:52 10/15/24 19:30 10/15/24 19:30 Temperature Pulse Rate 66 63 Pulse Rate [Palpation] 63 Respiratory Rate 20 12 Blood Pressure 174/84 H 163/89 H Pulse Oximetry 100 99 Oxygen Delivery 10/15/24 19:45 10/15/24 20:00 10/15/24 20:00 Temperature Pulse Rate 64 62 Pulse Rate [Palpation] 64 Respiratory Rate 12 10 L Blood Pressure 179/84 H 159/83 H Pulse Oximetry 100 99 Oxygen Delivery 10/15/24 20:00 10/15/24 20:00 10/15/24 20:00 Temperature 36.6 C Pulse Rate 61 61 Pulse Rate [Palpation] Respiratory Rate 12 Blood Pressure 159/83 H Pulse Oximetry 99 Oxygen Delivery Room Air 10/15/24 20:15 10/15/24 20:45 10/15/24 21:15 Temperature 36.7 C 36.5 C 36.7 C Pulse Rate 61 64 60 Pulse Rate [Palpation] Respiratory Rate 12 12 14 Blood Pressure 153/81 H 150/81 H 145/80 H Pulse Oximetry 100 99 98 Oxygen Delivery 10/15/24 22:00 10/15/24 22:00 10/15/24 22:15 Temperature 36.7 C 36.6 C Pulse Rate 62 62 58 L Pulse Rate [Palpation] Respiratory Rate 13 13 Blood Pressure 144/77 H 127/84 Pulse Oximetry 99 98 Oxygen Delivery 10/15/24 23:15 10/16/24 00:00 10/16/24 00:00 Temperature 36.9 C Pulse Rate 60 Pulse Rate [Palpation] 60 Respiratory Rate 20 Blood Pressure 139/80 Pulse Oximetry 96 Oxygen Delivery Room Air 10/16/24 00:00 10/16/24 00:00 10/16/24 00:15 Temperature 37.1 C 36.9 C Pulse Rate 58 L 60 58 L Pulse Rate [Palpation] Respiratory Rate 20 16 Blood Pressure 122/66 120/61 Pulse Oximetry 97 96 Oxygen Delivery 10/16/24 01:15 10/16/24 02:00 10/16/24 02:00 Temperature 36.7 C 36.7 C Pulse Rate 62 62 62 Pulse Rate [Palpation] Respiratory Rate 16 16 Blood Pressure 136/79 136/79 Pulse Oximetry 96 96 Oxygen Delivery 10/16/24 04:00 10/16/24 04:00 10/16/24 04:00 Temperature 36.6 C Pulse Rate 60 Pulse Rate [Palpation] 58 L Respiratory Rate 17 Blood Pressure 133/69 Pulse Oximetry 96 Oxygen Delivery Room Air 10/16/24 04:00 10/16/24 06:00 10/16/24 06:00 Temperature 36.7 C Pulse Rate 60 56 L 56 L Pulse Rate [Palpation] Respiratory Rate 18 Blood Pressure 130/72 Pulse Oximetry 97 Oxygen Delivery 10/16/24 08:00 10/16/24 08:00 10/16/24 10:00 Temperature 36.8 C Pulse Rate 63 63 63 Pulse Rate [Palpation] Respiratory Rate 16 13 Blood Pressure 122/81 131/81 Pulse Oximetry 97 98 Oxygen Delivery 10/16/24 10:00 10/16/24 10:36 Temperature 36.9 C Pulse Rate 60 Pulse Rate [Palpation] Respiratory Rate Blood Pressure Pulse Oximetry Oxygen Delivery Intake/Output Intake/Output: Intake & Output 10/13/24 10/14/24 10/15/24 10/16/24 23:59 23:59 23:59 23:59 Intake Total 1320 Output Total 300 1900 Balance -300 -580 Meds/Results Medications: Active Medications Generic Name Dose Route Start Last Admin Trade Name Freq PRN Reason Stop Dose Admin Al Hydrox/Mg Hydrox/Simethicone 30 ml 10/15/24 19:30 Mag Hydrox/Al Hydrox/Simeth 30 Ml Udc PO Q4H PRN Indigestion Aspirin 81 mg 10/16/24 09:00 10/16/24 08:05 Aspirin 81 Mg Enteric Tablet PO 81 mg QAM LISSA Administration Atorvastatin Calcium 40 mg 10/16/24 09:00 10/16/24 08:05 Atorvastatin 40 Mg Tablet PO 40 mg DAILY LISSA Administration Temazepam 15 mg 10/15/24 19:30 Temazepam (*Crx) 15 Mg Capsule PO HS PRN Insomnia Ticagrelor 90 mg 10/16/24 20:00 Ticagrelor 90 Mg Tablet PO Q12HR [facility] Labs Labs: Laboratory Results - last 24 hr 10/15/24 10/15/24 10/15/24 17:20 17:42 19:54 WBC 10.4 H RBC 4.77 Hgb 15.8 Hct 46.7 MCV 97.9 MCH 33.1 MCHC 33.8 RDW 12.3 Plt Count 235 MPV 9.7 Immature Gran % (Auto) 0.2 Neut % (Auto) 83.6 H Lymph % (Auto) 9.4 L Cannon % (Auto) 5.6 Eos % (Auto) 0.9 Baso % (Auto) 0.3 Lymph # (Auto) 0.97 Cannon # (Auto) 0.6 Eos # (Auto) 0.1 Baso # (Auto) 0.0 Abs Immat Gran (auto) 0.02 Absolute Neuts (auto) 8.7 H Absolute Nucleated RBC 0.000 Nucleated RBC % 0.0 % Immature Plt Fraction 2.7 PT 12.4 INR 0.9 APTT 25.2 Sodium 137 Potassium 3.9 Chloride 104 Carbon Dioxide 22 Anion Gap 11 BUN 15 Creatinine 0.79 Estim Creat Clear Calc 71 Estimated GFR > 60 Glucose 111 H Hemoglobin A1c Calcium 8.9 Magnesium Total Bilirubin 0.7 AST 38 ALT 33 Alkaline Phosphatase 128 H Troponin I 0.017 Total Protein 8.4 H Albumin 4.7 Triglycerides 77 Cholesterol 208 H LDL Cholesterol Direct 114 HDL Direct 63 Lipase 80 TSH (Reflex) Nasal MRSA (PCR) Not detected 10/15/24 10/15/24 10/16/24 20:48 23:43 04:40 WBC 9.1 RBC 4.31 L Hgb 14.6 Hct 42.4 MCV 98.4 MCH 33.9 MCHC 34.4 RDW 12.2 Plt Count 215 MPV 9.8 Immature Gran % (Auto) 0.3 Neut % (Auto) 75.4 H Lymph % (Auto) 13.2 L Cannon % (Auto) 9.0 H Eos % (Auto) 1.9 Baso % (Auto) 0.2 Lymph # (Auto) 1.20 Cannon # (Auto) 0.8 H Eos # (Auto) 0.2 Baso # (Auto) 0.0 Abs Immat Gran (auto) 0.03 Absolute Neuts (auto) 6.9 H Absolute Nucleated RBC 0.000 Nucleated RBC % 0.0 % Immature Plt Fraction PT INR APTT Sodium 134 L Potassium 3.6 Chloride 106 Carbon Dioxide 22 Anion Gap 6 BUN 11 Creatinine 0.70 Estim Creat Clear Calc 89 Estimated GFR > 60 Glucose 102 Hemoglobin A1c 5.4 Calcium 8.0 L Magnesium 2.1 Total Bilirubin AST ALT Alkaline Phosphatase Troponin I 6.210 H* D 23.900 H* D Total Protein Albumin Triglycerides Cholesterol LDL Cholesterol Direct HDL Direct Lipase TSH (Reflex) 1.940 Nasal MRSA (PCR) Quality VTE Prophylaxis VTE prophylaxis: mechanical ordered
--- NOTE | 2024-10-16 17:46 | PC.NURSE ---
This patient, Thiago Florez, was transferred to [[id number] ] on 10/16/24 at 1743. Personal belongings sent with patient. Report given to [YOHAN Hay @ 2174 ]. Appropriate documentation sent with patient.
--- NOTE | 2024-10-16 19:30 | ECHO_ITS ---
Patient Info Name: Thiago Florez Age: 69 years : 1955 Gender: Male Ht: 67 in Wt: 192 lbs BSA: 2.05 m2 HR: 63 bpm BP: 130 / 72 mmHg Heart Rhythm: Sinus Rhythm Technical Quality: Fair Exam Date: 10/16/2024 8:22 AM Patient Status: I Admit Date: 10/15/2024 Exam Type: CA echo dop color flow w con Complete two-dimensional, color flow and Doppler transthoracic echocardiogram is performed with contrast to opacify the left ventricle and to improve the deliniation of the left ventricle endocardial borders. Staff Referring Physician: Giles Fletcher Cartography Technician: Cheryl Adams Attending Provider: Clark Sharp MD Contrast/Agitated Saline Contrast/Ag. Saline: Definity Amount: 2.00 ml Summary 1. Mild concentric LVH with vigorous systolic function, no regional wall motion abnormalities. 2. Grade 1 diastolic noncompliance. 3. No valve dysfunction. Left Ventricle Left ventricular chamber dimension is normal. Left ventricular systolic function is normal, estimated at 65-70. There is mild concentric increased left ventricular wall thickness. The left ventricular diastolic function is grade I diastolic dysfunction. Right Ventricle Right ventricular chamber dimension is normal. Left Atria Left atrial chamber dimension is normal. Right Atria Right atrial chamber dimension is normal. Aortic Valve The aortic valve is trileaflet. There is mild aortic valve sclerosis. Pulmonic Valve The pulmonic valve is normal. Mitral Valve The mitral valve has normal leaflets. Tricuspid Valve The tricuspid valve leaflets are normal. Pericardium/Pleural The pericardium appears normal. Aorta The aortic root size at the sinus of Valsalva is normal. Left Ventricular Outflow Tract Name Value Normal LVOT 2D LVOT Diameter 2.2 cm LVOT Doppler LVOT Peak Velocity 129 cm/s LVOT Peak Gradient 7 mmHg LVOT Mean Gradient 3 mmHg LVOT VTI 27 cm LVOT Stroke Volume 98 ml LVOT CO 6.2 l/min LVOT CI 3.0 l/min/m2 Pulmonic Valve Name Value Normal RVOT Doppler RVOT Peak Velocity 50 cm/s RVOT Peak Gradient 1 mmHg PV Doppler PV Peak Velocity 74 cm/s PV Peak Gradient 2 mmHg Mitral Valve Name Value Normal MV Diastolic Function MV E Peak Velocity 51 cm/s MV A Peak Velocity 86 cm/s MV E/A 0.6 MV Decel Time (PW) 346 ms MV Annular TDI MV E/e' (Septal) 6.3 MV E/e' (Lateral) 6.1 MV E/e' (Average) 6.2 Aortic Valve Name Value Normal AV Doppler AV Peak Velocity 137 cm/s AV Peak Gradient 8 mmHg AV Area (Cont Eq Ray) 3.4 cm2 AV DI (Ray) 0.94 AV Regurgitation 2D LVOT Area 3.7 cm2 Ventricles Name Value Normal LV Dimensions 2D/MM IVS Diastolic Thickness (2D) 1.4 cm 0.6-1.0 LVID Diastole (2D) 4.6 cm 4.2-5.8 LVIW Diastolic Thickness (2D) 1.5 cm 0.6-1.0 LVID Systole (2D) 2.3 cm 2.5-4.0 LVOT Diameter 2.2 cm LV Mass (2D Cubed) 270.17 g 88.00-224.00 LV Mass Index (2D Cubed) 132 g/m2 49-115 Relative Wall Thickness (2D) 0.66 <=0.42 LV Fractional Shortening/Ejection Fraction 2D/MM LV Fractional Shortening (2D) 49 % 25-43 LV EF (2D Teichholz) 80 % LV Diastolic Volume (4C MOD) 85 ml LV EF (4C MOD) 62 % LV Diastolic Volume (2C MOD) 91 ml LV EF (2C MOD) 65 % LV Diastolic Volume (BP MOD) 88 ml 62-150 LV Diastolic Volume Index (BP MOD) 43 ml/m2 34-74 LV Systolic Volume (BP MOD) 32 ml 21-61 LV Systolic Volume Index (BP MOD) 15 ml/m2 11-31 LV EF (BP MOD) 64 % 52-72 LV Diastolic Length (4C) 8.2 cm LV Systolic Length (4C) 6.9 cm LV Stroke Volume (4C MOD) 52 ml Atria Name Value Normal LA Dimensions LA Volume (4C A-L) 58 ml LA Volume (BP A-L) 58 ml RA Dimensions RA Systolic Major [place] Length (4C) 5.7 cm 2.1-2.7 RA Area (4C) 21.8 cm2 <=18.0 Report Signatures
[2024-10-17] VITALS (12 sets, daily range): BP systolic 139–178; BP diastolic 67–87; PULSE 58–68; RESP 17–18; TEMP 36.6–36.9; O2SAT 98–100
--- NOTE | 2024-10-17 08:20 | PM.IMPN ---
Progress Note: A&P Assessment and Plan (1) Chest pain: Code(s): R07.9 - Chest pain, unspecified Status: Acute Assessment and Plan: Patient presented with chest pain, substernal, radiated to both arms, complain of nausea but no vomiting, denies any diaphoresis or shortness of breath -EKG showed ST elevation in the inferior leads (2) STEMI (ST elevation myocardial infarction): Code(s): I21.3 - ST elevation (STEMI) myocardial infarction of unspecified site Status: Acute Assessment and Plan: Status post PTCA/PCI with BARBARA x1 to 100% occluded proximal RCA, LVEDP was 12 mmHg. Patient also has a 90% high-grade stenosis in the proximal portion of the LAD which will require staged PCI with Cardiology -echocardiogram has been ordered -continue aspirin, atorvastatin, ticagrelor -cardiology on board (3) Hyperlipidemia: Code(s): E78.5 - Hyperlipidemia, unspecified Status: Acute Assessment and Plan: Continue statin (4) Alcohol use: Code(s): F10.90 - Alcohol use, unspecified, uncomplicated Status: Acute Assessment and Plan: Patient drinks 6 packs beer every day -denies any alcohol withdrawal issues Subjective Date/time seen: 10/17/24 08:20 Interval history: Patient denies any medical comorbid condition. Clear discharge from medical standpoint. Rest of the management as per Cardiology. As per Cardiology continue aspirin and Brilinta and staged intervention to the LAD within 1-2 weeks Review of Systems Review of Systems: All systems reviewed & are unremarkable except as noted in HPI and below Exam Narrative: General: Pleasant gentleman in no acute distress HEENT:? Pupils equal and reactive, sclerae is clear Neck:? Supple Respiratory:? Clear to auscultation bilaterally, no wheezes, adequate air Cardiac:? S1-S2 normal, regular rate and rhythm Abdomen:? Soft, nontender, nondistended, normoactive bowel sounds Extremities:? Right growing site without any evidence of ecchymosis or hematoma Neuro:? Patient is awake, alert, oriented x3, nonfocal Skin:? More skin lesions noted Psych:? Normal mentation and affect Objective Data Vital Signs Vital Signs: Vital Signs - 24 hr 10/16/24 10:00 10/16/24 10:00 10/16/24 10:36 Temperature 98.5 F Pulse Rate 63 60 Pulse Rate [Bilateral Pedal (Dorsalis Pedis) Palpation] Pulse Rate [Right Pedal (Dorsalis Pedis) Palpation] Respiratory Rate 13 Blood Pressure 131/81 Pulse Oximetry 98 10/16/24 12:00 10/16/24 12:00 10/16/24 12:23 Temperature 97.8 F Pulse Rate 58 L 61 Pulse Rate [Bilateral Pedal (Dorsalis Pedis) Palpation] Pulse Rate [Right Pedal (Dorsalis Pedis) Palpation] Respiratory Rate 14 Blood Pressure 149/84 H Pulse Oximetry 97 10/16/24 14:00 10/16/24 16:00 10/16/24 16:00 Temperature 98.1 F Pulse Rate 56 L 75 55 L Pulse Rate [Bilateral Pedal (Dorsalis Pedis) Palpation] Pulse Rate [Right Pedal (Dorsalis Pedis) Palpation] Respiratory Rate 18 Blood Pressure 160/86 H Pulse Oximetry 100 10/16/24 18:00 10/16/24 19:38 10/16/24 20:00 Temperature 98.5 F 97.8 F Pulse Rate 63 62 Pulse Rate [Bilateral Pedal (Dorsalis Pedis) Palpation] 68 Pulse Rate [Right Pedal (Dorsalis Pedis) Palpation] 68 Respiratory Rate 18 16 Blood Pressure 153/81 H 144/85 H Pulse Oximetry 100 99 10/16/24 20:00 10/16/24 22:00 10/16/24 23:43 Temperature 98.4 F Pulse Rate 137 H 60 59 L Pulse Rate [Bilateral Pedal (Dorsalis Pedis) Palpation] Pulse Rate [Right Pedal (Dorsalis Pedis) Palpation] Respiratory Rate 17 Blood Pressure 170/94 H Pulse Oximetry 99 10/17/24 00:00 10/17/24 00:00 10/17/24 02:00 Temperature Pulse Rate 60 61 Pulse Rate [Bilateral Pedal (Dorsalis Pedis) Palpation] 60 Pulse Rate [Right Pedal (Dorsalis Pedis) Palpation] 60 Respiratory Rate Blood Pressure Pulse Oximetry 10/17/24 03:45 10/17/24 04:00 10/17/24 04:00 Temperature 98.5 F Pulse Rate 68 59 L Pulse Rate [Bilateral Pedal (Dorsalis Pedis) Palpation] 63 Pulse Rate [Right Pedal (Dorsalis Pedis) Palpation] 63 Respiratory Rate 17 Blood Pressure 178/87 H Pulse Oximetry 100 10/17/24 06:00 10/17/24 07:37 Temperature 98.3 F Pulse Rate 58 L 63 Pulse Rate [Bilateral Pedal (Dorsalis Pedis) Palpation] Pulse Rate [Right Pedal (Dorsalis Pedis) Palpation] Respiratory Rate 18 Blood Pressure 150/79 H Pulse Oximetry 98 Intake/Output Intake/Output: Intake & Output 10/14/24 10/15/24 10/16/24 10/17/24 23:59 23:59 23:59 23:59 Intake Total 1810 Output Total 300 2800 Balance -300 -990 Meds/Results Medications: Active Medications Generic Name Dose Route Start Last Admin Trade Name Freq PRN Reason Stop Dose Admin Al Hydrox/Mg Hydrox/Simethicone 30 ml 10/15/24 19:30 Mag Hydrox/Al Hydrox/Simeth 30 Ml Udc PO Q4H PRN Indigestion Aspirin 81 mg 10/16/24 09:00 10/16/24 08:05 Aspirin 81 Mg Enteric Tablet PO 81 mg QAM LISSA Administration Atorvastatin Calcium 40 mg 10/16/24 09:00 10/16/24 08:05 Atorvastatin 40 Mg Tablet PO 40 mg DAILY LISSA Administration Temazepam 15 mg 10/15/24 19:30 Temazepam (*Crx) 15 Mg Capsule PO HS PRN Insomnia Ticagrelor 90 mg 10/16/24 20:00 10/16/24 20:29 Ticagrelor 90 Mg Tablet PO 90 mg Q12HR LISSA Administration Quality VTE Prophylaxis VTE prophylaxis: mechanical ordered Hospitalist MIPS Advance Care Plan I have confirmed that the patient's Advanced Care Plan is present, code status is documented, or surrogate decision maker is listed in patient medical record.: Yes Medication Reconciliation I have utilized all available resources to obtain, update and review the patients current medications (includes all prescriptions, OTC, herbals, cannabis, and nutritional supplements).: Yes
[2024-10-17] MEDS: TICAGRELOR 90 MG TABLET PO (08:54)
[2024-10-17] MEDS: ASPIRIN 81 MG ENTERIC TABLET PO (08:54)
[2024-10-17] MEDS: ATORVASTATIN 40 MG TABLET PO (08:54)
--- NOTE | 2024-10-17 10:41 | P.PNCA_ITS ---
Progress Note: A&P Assessment and Plan (1) STEMI (ST elevation myocardial infarction): Code(s): I21.3 - ST elevation (STEMI) myocardial infarction of unspecified site Status: Acute Assessment and Plan: Presented with chest pain and was found to have inferior STEMI. * s/p PCI/BARBARA x 1 to the RCA (3 x 26mm Osiro stent) * Preserved EF * DAPT with ASA indefinitely, Brilinta for 1 year * High intensity statin * Cardiac rehab referral * Add losartan 25mg daily (first dose now) and ToprolXL 25mg on discharge * OK for discharge today from my point of view * Plan for staged LAD intervention in 1-[address] Wheeler (2) Coronary artery disease: Code(s): I25.10 - Atherosclerotic heart disease of hoh coronary artery without angina pectoris Status: Acute Assessment and Plan: CAD presenting with inferior STEMI. As above. (3) Hyperlipidemia: Code(s): E78.5 - Hyperlipidemia, unspecified Status: Acute Assessment and Plan: High intensity statin (4) Alcohol use: Code(s): F10.90 - Alcohol use, unspecified, uncomplicated Status: Acute Assessment and Plan: On withdrawal precautions Subjective Date/time seen: 10/17/24 10:41 Interval history: Cardiology follow-up visit Date of service 10/17/2024: Review of Systems Review of Systems: All systems reviewed & are unremarkable except as noted in HPI and below Constitutional: Constitutional: Denies chills, Denies fatigue, Denies fever(s), Denies headache(s) and Denies snoring Eyes: Eyes: Denies eye discharge and Denies loss of vision ENT: Denies dizziness, Denies headache(s), Denies nasal discharge and Denies sore throat Cardiovascular: Cardiovascular: Reports as per HPI, Reports chest pain, Denies syncope, Denies rapid heart rate, Denies leg edema, Reports dyspnea, Reports dyspnea on exertion, Denies orthopnea and Denies paroxysmal nocturnal dyspnea Respiratory: Respiratory: Denies chest congestion, Denies cough, Reports dyspnea, Reports dyspnea on exertion, Denies snoring and Denies wheezing Gastrointestinal: Gastrointestinal: Denies abdominal pain, Denies diarrhea, Denies nausea and Denies vomiting Genitourinary: Genitourinary: Denies hematuria, Denies dysuria, Denies flank pain and Denies urinary frequency Musculoskeletal: Musculoskeletal: Denies myalgias, Denies arthralgias and Denies joint swelling Neurologic: Denies Abnormal speech present, Denies dizziness, Denies syncope, Denies headache(s), Denies focal weakness and Denies loss of vision Psychiatric: Psychiatric: Denies anxiety and Denies depression Endocrine: Endocrine: Denies cold intolerance, Denies fatigue and Denies heat intolerance Hematologic/Lymphatic: Hematologic/Lymphatic: Denies easy bleeding and Denies easy bruising Allergic/Immunologic: Allergic/Immunologic: Denies urticaria and Denies wheezing Exam Const: General: cooperative, healthy appearing, comfortable, no acute distress, well developed and well nourished Nutritional Appearance: well nourished Orientation/consciousness: patient oriented x3 HENMT: Head: normal to inspection, normocephalic and atraumatic Ears: hearing grossly normal bilaterally and external ears normal Face/Nose/Sinus: Normal external nose present, Normal nares present, normal facial exam and No erythema Face and sinus: normal facial exam and no erythema Mouth: Yes moist mucous membranes and No lip abnormal Throat: uvula midline Eyes: General: appearance normal, both eyes and all related structures Eyelids: eyelids normal Sclera: sclerae normal Neck: Neck: normal visual inspection and full ROM Thyroid: thyroid normal Carotids: no bruits Lymphatic: lymphedema not noted Chest: Chest palpation & inspection: normal inspection of the chest and normal palpation of entire chest wall Resp: Effort & Inspection: normal respiratory effort and not labored Auscultation: clear to auscultation bilaterally, no crackles, no rales and no wheezes Cardio: Jugular venous distension: no JVD Rate: regular rate Rhythm: regular rhythm Heart sounds: S1 normal heart sound present, S2 normal heart sound present, no click, no gallops, no murmurs and no rubs Bruits: no carotid bruits GI: Inspection: normal to inspection and non-distended Auscultation: normal bowel sounds Rectal Exam: deferred : General: No CVA tenderness and Yes no CVA tenderness Back/Spine/Pelvis: Back: no CVA tenderness, No CVA tenderness and No erythema Cervical Spine: cervical ROM normal Skin: General skin exam: normal color, no erythema and no pallor Lesions: no lesions Rashes: no rashes Neuro: General: patient oriented x3 and moves all extremities Cranial nerves: Yes facial symmetry Speech: normal speech and No Abnormal speech present Motor exam (neuro): 5/5 motor strength present throughout Extrem: General: normal to inspection and full ROM Psych: Appearance: grossly normal, well kempt and disheveled Affect: normal affect Objective Data Vital Signs Vital Signs: Vital Signs - 24 hr 10/16/24 12:00 10/16/24 12:00 10/16/24 12:23 Temperature 36.6 C Pulse Rate 58 L 61 Pulse Rate [Bilateral Pedal (Dorsalis Pedis) Palpation] Pulse Rate [Right Pedal (Dorsalis Pedis) Palpation] Respiratory Rate 14 Blood Pressure 149/84 H Pulse Oximetry 97 10/16/24 14:00 10/16/24 16:00 10/16/24 16:00 Temperature 36.7 C Pulse Rate 56 L 75 55 L Pulse Rate [Bilateral Pedal (Dorsalis Pedis) Palpation] Pulse Rate [Right Pedal (Dorsalis Pedis) Palpation] Respiratory Rate 18 Blood Pressure 160/86 H Pulse Oximetry 100 10/16/24 18:00 10/16/24 19:38 10/16/24 20:00 Temperature 36.9 C 36.6 C Pulse Rate 63 62 Pulse Rate [Bilateral Pedal (Dorsalis Pedis) Palpation] 68 Pulse Rate [Right Pedal (Dorsalis Pedis) Palpation] 68 Respiratory Rate 18 16 Blood Pressure 153/81 H 144/85 H Pulse Oximetry 100 99 10/16/24 20:00 10/16/24 22:00 10/16/24 23:43 Temperature 36.9 C Pulse Rate 137 H 60 59 L Pulse Rate [Bilateral Pedal (Dorsalis Pedis) Palpation] Pulse Rate [Right Pedal (Dorsalis Pedis) Palpation] Respiratory Rate 17 Blood Pressure 170/94 H Pulse Oximetry 99 10/17/24 00:00 10/17/24 00:00 10/17/24 02:00 Temperature Pulse Rate 60 61 Pulse Rate [Bilateral Pedal (Dorsalis Pedis) Palpation] 60 Pulse Rate [Right Pedal (Dorsalis Pedis) Palpation] 60 Respiratory Rate Blood Pressure Pulse Oximetry 10/17/24 03:45 10/17/24 04:00 10/17/24 04:00 Temperature 36.9 C Pulse Rate 68 59 L Pulse Rate [Bilateral Pedal (Dorsalis Pedis) Palpation] 63 Pulse Rate [Right Pedal (Dorsalis Pedis) Palpation] 63 Respiratory Rate 17 Blood Pressure 178/87 H Pulse Oximetry 100 10/17/24 06:00 10/17/24 07:37 10/17/24 08:00 Temperature 36.8 C Pulse Rate 58 L 63 Pulse Rate [Bilateral Pedal (Dorsalis Pedis) Palpation] 63 Pulse Rate [Right Pedal (Dorsalis Pedis) Palpation] 63 Respiratory Rate 18 Blood Pressure 150/79 H Pulse Oximetry 98 10/17/24 08:00 10/17/24 10:00 Temperature Pulse Rate 61 62 Pulse Rate [Bilateral Pedal (Dorsalis Pedis) Palpation] Pulse Rate [Right Pedal (Dorsalis Pedis) Palpation] Respiratory Rate Blood Pressure Pulse Oximetry Intake/Output Intake/Output: Intake & Output 10/14/24 10/15/24 10/16/24 10/17/24 23:59 23:59 23:59 23:59 Intake Total 1810 Output Total 300 2800 Balance -300 -990 Meds/Results Medications: Active Medications Generic Name Dose Route Start Last Admin Trade Name Freq PRN Reason Stop Dose Admin Al Hydrox/Mg Hydrox/Simethicone 30 ml 10/15/24 19:30 Mag Hydrox/Al Hydrox/Simeth 30 Ml Udc PO Q4H PRN Indigestion Aspirin 81 mg 10/16/24 09:00 10/17/24 08:54 Aspirin 81 Mg Enteric Tablet PO 81 mg QAM LISSA Administration Atorvastatin Calcium 40 mg 10/16/24 09:00 10/17/24 08:54 Atorvastatin 40 Mg Tablet PO 40 mg DAILY LISSA Administration Temazepam 15 mg 10/15/24 19:30 Temazepam (*Crx) 15 Mg Capsule PO HS PRN Insomnia Ticagrelor 90 mg 10/16/24 20:00 10/17/24 08:54 Ticagrelor 90 Mg Tablet PO 90 mg Q12HR LISSA Administration Quality VTE Prophylaxis VTE prophylaxis: mechanical ordered
[2024-10-17] MEDS: LOSARTAN POTASSIUM 25 MG TABLET PO (12:33)
--- NOTE | 2024-10-17 14:17 | P.DS_ITS ---
DS: Admitting Diagnosis Discharge Date 10/17/24 <ZAID Noe - Last Filed: 10/17/24 14:21> Admitting Diagnosis STEMI <ZAID oNe - Last Filed: 10/17/24 14:21> DS: Discharge Diagnosis Discharge Diagnosis (1) STEMI (ST elevation myocardial infarction): Code(s): I21.3 - ST elevation (STEMI) myocardial infarction of unspecified site <ZAID Noe - Last Filed: 10/17/24 14:21> Status: Acute <ZAID Noe - Last Filed: 10/17/24 14:21> Assessment and Plan: Presented with chest pain and was found to have inferior STEMI. * s/p PCI/BARBARA x 1 to the RCA (3 x 26mm Osiro stent) * Preserved EF * DAPT with ASA indefinitely, Brilinta for 1 year * High intensity statin * Cardiac rehab referral * Add losartan 25mg daily (first dose now) and ToprolXL 25mg on discharge * OK for discharge today from my point of view * Plan for staged LAD intervention in 1-[address] Wheeler <ZAID Noe - Last Filed: 10/17/24 14:21> (2) Coronary artery disease: Code(s): I25.10 - Atherosclerotic heart disease of [place] coronary artery without angina pectoris <ZAID Noe - Last Filed: 10/17/24 14:21> Status: Acute <ZAID Noe - Last Filed: 10/17/24 14:21> Assessment and Plan: CAD presenting with inferior STEMI. As above. <ZAID Noe - Last Filed: 10/17/24 14:21> (3) Hyperlipidemia: Code(s): E78.5 - Hyperlipidemia, unspecified <ZAID Noe - Last Filed: 10/17/24 14:21> Status: Acute <ZAID Noe - Last Filed: 10/17/24 14:21> Assessment and Plan: High intensity statin <ZAID Noe - Last Filed: 10/17/24 14:21> (4) Alcohol use: Code(s): F10.90 - Alcohol use, unspecified, uncomplicated <ZAID Noe - Last Filed: 10/17/24 14:21> Status: Acute <ZAID Noe - Last Filed: 10/17/24 14:21> Assessment and Plan: On withdrawal precautions <ZAID Noe - Last Filed: 10/17/24 1 4:21> DS: Summary Hospital Course Hospital Course: 10/15/24: presented with inferior STEMI. Underwent emergency angiogram and PCI with BARBARA x 1 to the RCA (3 x 26mm Osiro stent). 10/16/24: No post catheterization complications. Recovering well in the ICU. Transfer out of the ICU to IMU 10/17/24: Stable, no acute events overnight. Telemetry stable. Patient feeling well and does not have any complaints. Discharge today. <ZAID Noe - Last Filed: 10/17/24 14:21> Time Spent with Patient Time attestation: Total time spent providing and/or coordinating discharge services: <ZAID Noe - Last Filed: 10/17/24 14:21> Time spent: Less than 30 minutes <Beni Vallejo MD - Last Filed: 10/17/24 15:15> Exam Const: General: comfortable, no acute distress, alert and awake <ZAID Noe - Last Filed: 10/17/24 14:21> Orientation/consciousness: patient oriented x3 <ZAID Noe - Last Filed: 10/17/24 14:21> HENMT: Head: normal to inspection <ZAID Noe - Last Filed: 14:21> Eyes: General: appearance normal, both eyes and all related structures <ZAID Noe - Last Filed: 10/17/24 14:21> Pupils: Equal, round and reactive pupils present <ZAID Noe - Last Filed: 10/17/24 14:21> Neck: Neck: normal visual inspection, supple and no JVD <MELVA NoeC - Last Filed: 10/17/24 14:21> Carotids: normal carotid upstroke <MELVA NoeC - Last Filed: 10/17/24 14:21> Resp: Effort & Inspection: normal respiratory effort <MELVA Noe C - Last Filed: 10/17/24 14:21> Auscultation: clear to auscultation bilaterally <Rachel Arevalo APN-C - Last Filed: 10/17/24 14:21> Cardio: Rate: regular rate <MELVA Noe - Last Filed: 10/17/24 14:21> Rhythm: regular rhythm <MELVA Noe - Last Filed: 10/17/24 14:21> Heart sounds: S1 normal heart sound present, S2 normal heart sound present and no murmurs <MELVA Noe - Last Filed: 10/17/24 14:21> GI: Auscultation: normal bowel sounds <MELVA Noe - Last Filed: 10/17/24 14:21> Skin: General skin exam: normal color <MELVA Noe - Last Filed: 10/17/24 14:21> Neuro: General: patient oriented x3 <MELVA Noe - Last Filed: 10/17/24 14:21> Cranial nerves: Yes Equal, round and reactive pupils present <MELVA NoeC - Last Filed: 10/17/24 14:21> Extrem: General: normal to inspection <MELVA Noe - Last Filed: 10/17/24 14:21> Other: Right groin arterial access site free from bleeding, hematoma. <MELVA NoeC - Last Filed: 10/17/24 14:21> Psych: Appearance: grossly normal <MELVA NoeC - Last Filed: 10/17/24 14:21> Mental Status: mental status grossly normal <ZAID Noe - Last Filed: 10/17/24 14:21> Discharge Plan Discharge Attending physician on discharge: Beni Vallejo <ZAID Noe - Last Filed: 10/17/24 14:21> Beni Vallejo <Beni Vallejo MD - Last Filed: 10/17/24 15:15> Consulting providers: Anastasia Guy <ZAID Noe - Last Filed: 10/17/24 14:21> Discharging Clinician: Rachel Arevalo <ZAID Noe - Last Filed: 10/17/24 14:21> Rachel Arevalo <Beni Vallejo MD - Last Filed: 10/17/24 15:15> Patient Disposition: Home <ZAID Noe - Last Filed: 10/17/24 14:21> Activity: other - see discharge instructions <ZAID Noe - Last Filed: 10/17/24 14:21> other - see discharge instructions <Beni Vallejo MD - Last Filed: 10/17/24 15:15> Diet: heart healthy <ZAID Noe - Last Filed: 10/17/24 14:21> heart healthy <Beni Vallejo MD - Last Filed: 10/17/24 15:15> Wound Care Instructions: other - see discharge instructions <ZAID Noe - Last Filed: 10/17/24 14:21> other - see discharge instructions <Beni Vallejo MD - Last Filed: 10/17/24 15:15> Patient Instructions: Antibiotic Form, Metoprolol (By mouth), Losartan (By mouth), Atorvastatin (By mouth), Ticagrelor (By mouth), Heart Healthy Diet (DC), Alcohol Dependence (DC), Alcohol Use Disorder (DC), Heart Catheterization (DC), Coronary Intravascular Stent Placement (DC), Angio-Seal (DC) <ZAID Noe - Last Filed: 10/17/24 14:21> Patient Language: Amharic <ZAID Noe - Last Filed: 10/17/24 14:21> Stand Alone Forms: General Discharge Information <ZAID Noe - Last Filed: 10/17/24 14:21> Follow-up/Referrals: Rachel Arevalo APN-C [Advanced Practice Nurse, Cardiology] <ZAID Noe - Last Filed: 10/17/24 14:21> Discharge Medications: New ticagrelor [Brilinta] 90 mg Tablet 90 mg PO Q12HR 30 Days Qty: 60 11RF atorvastatin 40 mg Tablet 40 mg PO DAILY 30 Days Qty: 30 11RF aspirin 81 mg Tablet,Delayed Release (Dr/Ec) 81 mg PO QAM 30 Days Qty: 30 11RF losartan 25 mg Tablet 25 mg PO DAILY 30 Days Qty: 30 3RF metoprolol succinate [Toprol XL] 25 mg Tablet Extended Release 24 Hr 25 mg PO QAM 30 Days Qty: 30 3RF <ZAID Noe - Last Filed: 10/17/24 14:21> Date of admission: 10/15/24 17:17 <ZAID Noe - Last Filed: 10/17/24 14:21> Primary Care Provider: PHYSICIAN,DIFFERENTIAL SPECIALIST <ZAID Noe - Last Filed: 10/17/24 14:21> Admitting Provider: Clark Sharp <ZAID Noe - Last Filed: 10/17/24 14:21> Attending physician on admission: Clark Sharp <ZAID Noe - Last Filed: 10/17/24 14:21> Condition: Stable <ZAID Noe - Last Filed: 10/17/24 14:21>
--- NOTE | 2024-10-17 14:36 | PC.NURSE ---
went over d/c information, pt is getting dressed and will call brother to head this way for a ride, pt has brilinta from [facility], wallet, clothing and glasses and cell phone
--- NOTE | 2024-10-17 14:56 | PC.NURSE ---
pt taken out by w/c, belongings with him and medication, iv out
== END 2024-10-17 14:54 | disposition home or self-care (01) | DRG 322 ==
LOC: ANHED 17:36 → ANHICU 10-16 00:06 → ANHED 10-16 08:03 → ANHICU 10-16 08:05 → ANHIMU 10-17 09:04 → ANHICU 10-18 07:56
PROVIDERS: Internal Medicine; Internal Medicine Cardiovascular Disease; Admitting Provider Internal Medicine; Emergency Provider Emergency Medicine; Visit Provider Nurse Practitioner
PROC: 4A023N7 Measurement of Cardiac Sampling and Pressure, Left Heart, Percutaneous Approach (ICD-10-PCS; CPT 93452; principal; 2024-10-15 17:20)
PROC: 027034Z Dilation of Coronary Artery, One Artery with Drug-eluting Intraluminal Device, Percutaneous Approach (ICD-10-PCS; CPT 92928; 2024-10-15 17:20)
PROC: 027034Z Dilation of Coronary Artery, One Artery with Drug-eluting Intraluminal Device, Percutaneous Approach (ICD-10-PCS; 2024-10-15 17:20)
PROC: 027034Z Dilation of Coronary Artery, One Artery with Drug-eluting Intraluminal Device, Percutaneous Approach (ICD-10-PCS; 2024-10-15 17:20)
DX: I21.3 ST elevation (STEMI) myocardial infarction of unspecified site (principal); I25.10 Atherosclerotic heart disease of native coronary artery without angina pectoris; E78.5 Hyperlipidemia, unspecified; F10.90 Alcohol use, unspecified, uncomplicated
CPT/HCPCS: 36415; 80048; 80053; 80061; 83036; 83690; 83735; 84443; 84484; 85025; 85055; 85610; 85730; 87641; 92978; 93005; 93458; 96374; 99285; A9270; C1725; C1753; C1760; C1769; C1874; C1887; C1894; C8929; C9606; G0269; J0461; J0583; J1644; J2003; J2250; J2305; J3010; J7030; J7040; Q9957

== ENCOUNTER 2025-01-17 11:21 | Outpatient (CLI) | payer MEDICARE, SELFPAY ==
--- NOTE | ~2025-01-17 | XR_ITS ---
EXAMINATION: XR chest 2V, 01/17/2025 11:50 [facility] HISTORY: SOB COMPARISON: No comparisons available. Technique: 2 views obtained. Findings: The lungs are clear, no effusion. No pneumothorax. Heart is normal size. Mediastinal and hilar contours are within normal limits. Bony thorax no acute abnormality. Impression: No acute cardiopulmonary abnormality. Reviewed, dictated and finalized at location [facility]. N [facility] Impression: No acute cardiopulmonary abnormality.
[2025-01-17 12:11] LABS: Hematocrit 46.8 % (42.0-52.0); Hemoglobin 15.6 g/dL (14.0-18.0); Immature Granulocyte Percent A 0.5 % (0-0.5); Lymphocytes Absolute Auto 1.21 K/mm3 (0.9-3.2); Mean Corpuscular HGB Conc 33.3 g/dl (32-36); Mean Corpuscular Hemoglobin 33.7 pg (26-34); Mean Corpuscular Volume 101.1 fl (80-100); Nucleated Red Blood Cells Absolute Auto 0.000 K/mm3 (0.0-0.012); Nucleated Red Blood Cells Perc 0.0 % (0.0-0.2); Platelet Count Result 216 k/mm3 (150-375); Red Blood Count 4.63 M/mm3 (4.6-6.20); White Blood Count 8.1 K/mm3 (4.5-10.0)
[2025-01-17 12:42] LABS: Anion Gap 6 mmol/L (4-12); Blood Urea Nitrogen 21 mg/dL (9-20); Calcium 8.9 mg/dL (8.4-10.2); Carbon Dioxide 27 mmol/L (22-30); Chloride 104 mmol/L (98-107); Cholesterol 127 mg/dL (0-200); Estimated Glomerular Filt Rate > 60; Glucose 103 mg/dL (65-110); HDL Direct 60 mg/dL; Potassium 4.5 mmol/L (3.4-5.0); Sodium 137 mmol/L (137-145); Triglycerides 48 mg/dL (<150)
[2025-01-17 12:46] LABS: NT Pro B Type Natriuretic Pept 84 pg/mL (19.9-100)
[2025-01-17 13:08] LABS: Thyroid Stimulating Hormone 2.650 uIU/mL (0.465-4.680)
== END 2025-01-17 11:22 | disposition home or self-care (01) ==
PROVIDERS: Visit Provider Nurse Practitioner Family
DX: R06.02 Shortness of breath (principal); E78.5 Hyperlipidemia, unspecified; I10 Essential (primary) hypertension
CPT/HCPCS: 36415; 71046; 80048; 80061; 83880; 84443; 85025